=== PATIENT | male | born 1965 | race Caucasian/White ===

== ENCOUNTER 2024-01-30 07:52 | Emergency (ER) | payer OTHER ==
[~2024-01-30] VITALS: Ht 188 cm; Wt 131.0 kg
[2024-01-30 07:56] VITALS: TEMP 98
[2024-01-30] MEDS: ketorolac trometh 30MG/ML vial 30 MG/ML VIAL IV ONE (09:16)
[2024-01-30] MEDS ORDERED: OXYC-658 PO (10:06)
[2024-01-30] MEDS ORDERED: METH4TAB81 PO (10:07)
[2024-01-30] MEDS ORDERED: CYCL-1 PO (10:08)
[2024-01-30 10:32] VITALS: BP 155/106; PULSE 112; RESP 20; O2SAT 95
== END 2024-01-30 10:33 | disposition home or self-care (01) ==
LOC: ER 07:53
DX: M54.16 Radiculopathy, lumbar region (principal); G89.29 Other chronic pain; M54.50 Low back pain, unspecified; Z79.899 Other long term (current) drug therapy
CPT/HCPCS: 96374; 99283; J1885